=== PATIENT | male | born 1995 | race African-American/Black ===

== ENCOUNTER → 2019-02-20 | Emergency (ER) | payer OTHER ==
[~2019-02-20] VITALS: Ht 177.8 cm; Wt 72.6 kg
[~2019-02-20] MED LIST: DIPHENHYDRAMINE INJ 50 MG/ML VIAL IM ONE; methylPREDNISolone SOD SUCC/PF 62.5 MG/ML VIAL IM ONE
[2019-02-20 18:28] VITALS: BP_SYST 159
--- NOTE | 2019-02-20 18:28 | NUR ---
BROUGHT BACK TO [facility] BED AND TRIAGED. REPORT GIVEN TO BURT
== END | disposition home or self-care (01) ==
LOC: SED 18:28
DX: T78.1XXA Other adverse food reactions, not elsewhere classified, initial encounter (principal); X58.XXXA Exposure to other specified factors, initial encounter
CPT/HCPCS: 96372; 99283; J1200; J2930

== ENCOUNTER 2019-07-09 17:01 | Emergency (ER) | payer OTHER ==
[~2019-07-09] VITALS: Ht 177.8 cm; Wt 72.6 kg
[2019-07-09 17:07] VITALS: BP_SYST 150
--- NOTE | 2019-07-09 17:13 | NUR ---
Patient triaged and placed in waiting room. VSS and patient appears in no acute distress at this time. Accompanied by self, awaiting available bed, and MD notified of need for MSE.
--- NOTE | 2019-07-09 19:45 | NUR ---
Patient to ER bed H1 to gown for evaluation. Side rails up. Report given to ALISON Cano.
--- NOTE | 2019-07-09 20:00 | NUR ---
Pt is a 24 y/o male bib girlfriend for complaint of R side sore throat for 1.5 weeks. pt belives it to be tonsilitis. Hurts to swallow. Denies any fever today but did have a low grade one earlier in the week. States non-productive dry cough. Took Nyquil last night. Denies any chills, body aches, recent travels, or any other complaints.
--- NOTE | 2019-07-09 20:15 | NUR ---
IGOR Foster at bedside examining patient.
[2019-07-09] MEDS ORDERED: ACETAMINOPHEN 325 MG TABLET PO ONE (20:45)
[2019-07-09 22:16] LABS: STREPTOCOCCUS A SCREEN (RAPID) NEGATIVE (NEGATIVE)
[2019-07-09 22:24] LABS: INFLUENZA A&B ANTIGEN SCREEN NEGATIVE FOR A & B (NEGATIVE)
--- NOTE | 2019-07-09 22:29 | NUR ---
ER MD Dr. Foster at bedside speaking with patient.
[2019-07-09 22:39] VITALS: BP_SYST 150
--- NOTE | 2019-07-09 22:39 | NUR ---
Patient given written and verbal discharge instructions and verbalizes understanding. ER MD Dr. Foster discussed with patient the results and treatment provided. Patient in stable condition. ID arm band removed. Rx of amoxicillin and Cepacol Sore throat given. Patient educated on pain management and to follow up with PMD. Pain Scale 2/10 but stable enough to walk out of ER. Opportunity for questions provided and answered. Medication side effect fact sheet provided.
== END 2019-07-09 22:39 | disposition home or self-care (01) ==
LOC: SED 17:01
DX: J02.9 Acute pharyngitis, unspecified (principal)
CPT/HCPCS: 36415; 71045; 86403; 86710; 87081; 99284